=== PATIENT | female | born 1965 | race Caucasian/White ===

== ENCOUNTER 2016-11-29 06:14 | Emergency (ER) | payer BC ==
[~2016-11-29] VITALS: Ht 157.5 cm; Wt 97.8 kg
[~2016-11-29 06:14] MED LIST: EFFEXOR XR150 MG PO; TOPAMAX15 MG PO
[2016-11-29 08:54] LABS: HEMATOCRIT 40.9 % (36.0-46.0); MCHC 34.5 G/DL (30.0-36.0); MEAN PLAT.VOLUME 9.9 uM^3 (9.5-12.4); PLATELET COUNT 209 K/uL (156-360); RBC DIS.WIDTH-SD 43.9 % (39-53)
[2016-11-29 09:06] LABS: CHLORIDE 107 mEq/L (99-109); SODIUM 140 mEq/L (136-147)
[2016-11-29 09:08] LABS: GLUCOSE 108 mg/dL (70-99)
[2016-11-29 09:09] LABS: ANION GAP 8 MEQ/L (2-14)
[2016-11-29 09:10] LABS: TOTAL BILIRUBIN 0.3 mg/dL (0.0-1.0)
[2016-11-29 09:11] LABS: ALKALINE PHOSPHATASE 69 IU/L (3-129)
[2016-11-29 09:12] LABS: GFR ESTIMATE (CALCULATED) > 59 mL/min/
[2016-11-29 09:13] LABS: DIRECT BILIRUBIN 0.1 mg/dL (0.0-0.3); UREA NITROGEN (BUN) 13 mg/dL (9-23)
[2016-11-29 09:15] LABS: LIPASE 49 U/L (1.0-51.0)
[2016-11-29 09:54] LABS: ADD MIUA? NO; BILIRUBIN NEGATIVE; BLOOD NEGATIVE; COLOR YELLOW ((YELLOW)); GLUCOSE (STRIP) 150; KETONES NEGATIVE; LEUKOCYTES NEGATIVE; NITRITE NEGATIVE; PROTEIN (STRIP) NEGATIVE; SPECIFIC GRAVITY 1.019 (1.000-1.030); UCUL ADDED? NO; UROBILINOGEN 0.2 MG/DL (0.2-1.0)
[2016-11-29] MEDS ORDERED: NORCO 5/3251 TABLET PO (11:20)
[2016-11-29 11:43] VITALS: BP 102/61
== END 2016-11-29 11:46 | disposition home or self-care (01) ==
LOC: EME 06:14
PROVIDERS: Emergency Medicine
DX: R10.9 Unspecified abdominal pain (principal); R59.9 Enlarged lymph nodes, unspecified; Z85.72 Personal history of non-Hodgkin lymphomas
CPT/HCPCS: 74176; 80048; 80076; 81003; 83690; 85027; 99281; 99285; J3010; J7030